=== PATIENT | male | born 1950 ===

== ENCOUNTER 2021-02-01 10:28 | Inpatient (IN) ==
--- NOTE | 2021-01-16 10:18 | PAT Medication Instructions ---
Medication Instructions Date of Service January 16, 2021 Home Medications ibuprofen 400 mg PO Q6H PRN multivitamin 1 tab PO QAM nicotine 1 patch TRANSDERMAL DAILY PRN paroxetine HCl 20 mg PO QAM pravastatin 40 mg PO HS Continue as directed nicotine 1 patch TRANSDERMAL DAILY PRN (but avoid placement near surgical site prior to surgery) ASK your surgeon for instructions ibuprofen 400 mg PO Q6H PRN DO NOT take the morning of surgery multivitamin 1 tab PO QAM Take morning of surgery With a small sip of water, OTHERWISE NOTHING TO EAT OR DRINK AFTER MIDNIGHT: paroxetine HCl 20 mg PO QAM Take evening before surgery pravastatin 40 mg PO HS Other Notes If you have any questions please call us at [phone] or [phone] or [phone] or [phone]
--- NOTE | 2021-01-18 11:00 | Anesthesiology Consultation ---
Date of Service January 18, 2021 Assessment & Plan (1) Encounter for pre-operative examination: - COVID screening: Per assessment on 01/18: Travel screen negative, no known COVID-19 positive contacts or current COVID-19 related symptoms. Patient fully vaccinated. Surgeon arranging preop COVID testing. Awaiting results. - Generalized anxiety: patient reports that he is anxious regarding upcoming surgery/anesthesia. Advised to discuss further AM DOS if preop anxiolytic could be given if desired at that time. Chart Review Chart Review: Acceptable Risk for Surgery and Patient seen in Pre Admission Testing Teaching & Discussion Pre-Anesthesia Teaching/Discussion Notes: Instructed NPO after midnight before surgery,except medications with 15 cc of water. Medication instructions provided according to the PAT guidelines. History Surgery Operation Date: 02/01/21 07:45 Proposed Procedures p L2-S1 Decompression and Fusion Spinal Cord Monitoring - Chato Sandoval DO Height/Weight Height: 6 ft Weight: 94 kg Allergies Allergy/AdvReac Type Severity Reaction Status Date / Time No Known Allergies Allergy Verified 01/08/21 11:57 Medications Home Medications Medication Instructions Recorded Confirmed Last Taken ibuprofen 400 mg PO Q6H PRN 01/08/21 01/08/21 Unknown multivitamin 1 tab PO QAM 01/08/21 01/08/21 Unknown nicotine 1 patch TRANSDERMAL DAILY PRN 01/08/21 01/08/21 Unknown paroxetine HCl 20 mg PO QAM 01/08/21 01/08/21 Unknown pravastatin 40 mg PO HS 01/08/21 01/08/21 Unknown Past Medical History Medical History Depression Generalized anxiety disorder Hyperlipidemia Lumbar radiculopathy Neuropathy BLE Osteoarthritis Exercise / Class Metabolic Activity II 4-5 Yardwork/Stairs/Walk up hill (one flight of stairs (no chest pain, no sob)) Past Family History Family History Other No family history of adverse response to anesthesia Past Surgical History Surgical History History of colonoscopy History of tonsillectomy History of tooth extraction Hx of vasectomy Past Anesthesia History No Hx of Anesthesia Complications and No Family Hx of Anesthesia Complications History of PONV No Hx of PONV and No Hx of Motion Sickness Social History Smoking Status: Current every day smoker tobacco type: cigarettes Smoking cigarettes per day: 10 cigs/day (tobacco use x 25 years) Do You Dip or Chew Tobacco: No Hx Alcohol Use: No Hx Substance Use: No Review of Systems Patient denies chest pain, shortness of breath, dyspnea on exertion, fever, chills, cough, wheezing, palpitations. Physical Exam Vital Signs VITALS BP 154/89 (patient sates he has white coat htn, 120s/80s- PCP aware/monitoring closely) P 66 TEMP 98.1 SP02 98%RA RESP 18 PHYSICAL Full cervical extension range of motion. Full TMJ range of motion. TMD 4 finger breaths Mallampati Score 3 Dentition: missing molars Lungs: clear throughout to auscultation Cardiac: regular rate and rhythm, no murmurs noted Spine: normal Carotid arteries: negative bruit Extremities: no edema Short aguila. Testing Laboratory Results 01/18/21 11:18 01/18/21 11:18 PT 10.0 Seconds (9.0-12.0) 01/18/21 11:18 INR 1.0 (0.9-1.1) 01/18/21 11:18 APTT 25.1 Seconds (21.0-31.0) 01/18/21 11:18 Urine Color Yellow 01/18/21 Unknown Urine Appearance Clear (Clear) 01/18/21 Unknown Urine pH 5.5 (4.5-7.5) 01/18/21 Unknown Ur Specific [place] 1.016 (1.000-1.030) 01/18/21 Unknown Urine Protein 3+ (Negative) H 01/18/21 Unknown Urine Glucose (UA) Negative (Negative) 01/18/21 Unknown Urine Ketones Trace (Negative) H 01/18/21 Unknown Urine Nitrite Negative (Negative) 01/18/21 Unknown Ur Leukocyte Esterase Trace (Negative) H 01/18/21 Unknown Urine WBC (Auto) 1-5 /hpf (0-5) 01/18/21 Unknown Urine RBC (Auto) 5-10 /hpf (0-4) H 01/18/21 Unknown U Hyaline Cast (Auto) 1-5 /lpf (0-5) 01/18/21 Unknown U Epithel Cells (Auto) 5-10 /lpf (0-5) H 01/18/21 Unknown Urine Bacteria (Auto) Negative (Negative) 01/18/21 Unknown Blood Type A Positive 01/18/21 11:18 Antibody Screen NEGATIVE 01/18/21 11:18 Electrocardiogram Date: 01/18/21 Findings: + NSR @ (69) Chest X-Ray Date: 01/18/21 FINDINGS: Cardiomediastinal and hilar silhouettes are within normal limits. No pneumothorax, pleural effusion, airspace consolidation or overt pulmonary edema. Mild linear subsegmental scarring/atelectasis of the lingula. Hyperinflation. Mild mid thoracic dextroscoliosis. Degenerative changes of the shoulders and spine. IMPRESSION: No acute process.
--- NOTE | 2021-01-18 11:53 | XRay Report ---
XR chest Pre-admission PA/Lat HISTORY: 70 years-old Male pat chronic back pain COMPARISON: None TECHNIQUE: PA and lateral views of the chest FINDINGS: Cardiomediastinal and hilar silhouettes are within normal limits. No pneumothorax, pleural effusion, airspace consolidation or overt pulmonary edema. Mild linear subsegmental scarring/atelectasis of the lingula. Hyperinflation. Mild mid thoracic dextroscoliosis. Degenerative changes of the shoulders an d spine. IMPRESSION: No acute process. ACT 112: Negative or not required by law. The above report was generated using voice recognition software. It may contain grammatical, syntax o r spelling errors. Electronically signed by: Gabriel Gutierrez M.D. 01/18/2021 11:51 AM
[2021-01-18 12:32] LABS: Basophils # (auto) 0.02 K/uL (0-0.2); Basophils % (auto) 0.3 %; Eosinophils # (auto) 0.15 K/uL (0-0.5); Eosinophils % (auto) 2.1 %; Hemoglobin 13.7 g/dL (14.0-18.0); Immature Granulocytes # (auto) 0.01 K/uL (0.00-0.02); Immature Granulocytes % (auto) 0.1 %; Lymphocytes # (auto) 1.54 K/uL (1.2-3.4); Lymphocytes % (auto) 21.1 %; Mean Corpuscular Hgb Conc 35.1 g/dL (32-36); Mean Corpuscular Volume 96.8 fL (80-100); Mean Platelet Volume 9.5 fL (7.4-10.4); Monocytes # (auto) 0.83 K/uL (0.11-0.59); Monocytes % (auto) 11.4 %; Neutrophils # (auto) 4.76 K/uL (1.4-6.5); Platelet Count 263 K/uL (130-400); RDW Coefficient of Variation 12.7 % (11.5-14.5); RDW Standard Deviation 45.2 fL (36.4-46.3); Red Blood Count 4.03 M/uL (4.7-6.1); White Blood Count 7.31 K/uL (4.8-10.8)
[2021-01-18 12:34] LABS: Appearance Urine Clear (Clear); Bacteria Urine Automated Negative (Negative); Bilirubin Urine Negative (Negative); Blood Urine 1+ (Negative); Color Urine Yellow; Glucose Urine UA Negative (Negative); Ketones Urine Trace (Negative); Leukocyte Esterase Urine Trace (Negative); Nitrite Urine Negative (Negative); Protein Urine 3+ (Negative); Specific Gravity Urine 1.016 (1.000-1.030); Urobilinogen Urine Negative (Negative); pH Urine 5.5 (4.5-7.5)
[2021-01-18 12:48] LABS: Partial Thromboplastin Time 25.1 Seconds (21.0-31.0)
[2021-01-18 13:41] LABS: BUN Creatinine Ratio 11.8 (10-20); Calcium 8.8 mg/dl (8.5-10.1); Creatinine Clr Calc Pharmacy 67.1 ml/min; Est GFR (African American) 69.2; Est GFR (Non-African American) 59.7; Potassium 4.9 mmol/L (3.5-5.1)
--- NOTE | 2021-01-18 15:35 | Electrocardiogram Report ---
Test Reason : Blood Pressure : / mmHG Vent. Rate : 069 BPM Atrial Rate : 069 BPM P-R Int : 140 ms QRS Dur : 076 ms QT Int : 392 ms P-R-T Axes : 065 070 073 degrees QTc Int : 420 ms Normal sinus rhythm Normal ECG No previous ECGs available Confirmed by Kevin Owusu ([id number]) on 01/18/2021 3:35:12 PM Referred By: Chato Sandoval Confirmed By:Kevin Owusu
[~2021-02-01 10:28] MED LIST: ACETAMINOPHEN 500 MG TAB PO SCH; CeleBREX 200 MG CAP PO SCH; GABAPENTIN 300 MG CAP PO SCH; LR 15ML/HR IV SCH; ceFAZolin 2000MG 2,000 MG/15 ML SYR IV SCH
[2021-02-01] MEDS ORDERED: ePHEDrine sulfate 50 MG/ML AMP IV PRN (11:45)
[2021-02-01] MEDS ORDERED: ATROPINE SULFATE 0.1 MG/ML 10ML SYR IV PRN (11:45)
[2021-02-01] MEDS ORDERED: ONDANSETRON INJ 2 MG/ML 2 ML VIAL IV PRN ×2 (11:45→17:02)
[2021-02-01] MEDS ORDERED: fentaNYL citrate 100 MCG/2 ML VIAL IV PRN (11:45)
[2021-02-01] MEDS ORDERED: HYDROmorphone INJ 2 MG/ML SYR/VIAL IV PRN (11:45)
[2021-02-01] MEDS ORDERED: NEOSTIGMINE METHYLSULFATE 1 MG/ML 10ML VIAL ONE (12:05)
[2021-02-01] MEDS ORDERED: PROPOFOL IV EMULSION 10 MG/ML 20 ML VIAL IV ONE (12:05)
[2021-02-01] MEDS ORDERED: ROCURONIUM BROMIDE 10 MG/ML 5 ML VIAL IV ONE (12:05)
[2021-02-01] MEDS ORDERED: ONDANSETRON INJ 2 MG/ML 2 ML VIAL ONE (12:05)
[2021-02-01] MEDS ORDERED: MIDAZOLAM HCL 1 MG/ML 2ML VIAL ONE (12:05)
[2021-02-01] MEDS ORDERED: fentaNYL citrate 100 MCG/2 ML VIAL ONE (12:05)
[2021-02-01] MEDS ORDERED: KETAMINE 50 MG/5 ML SYRINGE ONE (12:07)
--- NOTE | 2021-02-01 12:23 | History & Physical Bridge Note ---
Date of Service February 01, 2021 History & Physical Bridge Note I have examined the patient, reviewed the History & Physical and in the interval since the performance of the History & Physical I have noted the following changes of clinical significance: no changes noted
--- NOTE | 2021-02-01 12:24 | History & Physical Report ---
Date of Service February 01, 2021 Assessment & Plan (1) Neurogenic claudication due to lumbar spinal stenosis: Admission and Anticipated Discharge Date Admission Date: L2-S1 decompression fusion History of Present Illness Chief Complaint: Back and bilateral leg pain Primary Care Provider: Neno Del Cid PA-C This is a 70-year-old male who presents with chronic persistent back and bilateral leg pain. After failing course of nonoperative care is here for surgical invention. Allergies Allergy/AdvReac Type Severity Reaction Status Date / Time No Known Allergies Allergy Verified 02/01/21 10:57 Home Medications Medication Instructions Recorded Confirmed Type ibuprofen 400 mg PO Q6H PRN 01/08/21 02/01/21 History multivitamin 1 tab PO QAM 01/08/21 02/01/21 History nicotine 1 patch TRANSDERMAL DAILY PRN 01/08/21 02/01/21 History paroxetine HCl 20 mg PO QAM 01/08/21 02/01/21 History pravastatin 40 mg PO QAM 01/08/21 02/01/21 History Past Med/Surg History Medical History Depression Generalized anxiety disorder Hyperlipidemia Lumbar radiculopathy Neuropathy BLE Osteoarthritis Surgical History History of colonoscopy History of tonsillectomy History of tooth extraction Hx of vasectomy Family History Other No family history of adverse response to anesthesia Social History Smoking Status: Current every day smoker Cigarettes Per Day: 10 cigs/day (tobacco use x 25 years); Second Hand Exposure: Yes (IN THE PAST); Do You Dip or Chew Tobacco: No; Tobacco Cessation Education Requested by Patient: No Hx Alcohol Use: No Hx Substance Use: No Preferred Language: Cook Islander Electric Motor Mechanic Required: No Beliefs That Will Affect Care: None Current Living Situation: Alone Feels Safe at Home: Yes Safety Concerns: Feels Safe At This Time Assistive Devices: Cane, Glasses and Walker Physical Exam Physical Exam: Patient is alert and oriented Heart regular in rhythm Lungs clear to auscultation Results & Data ([place]) Vital Signs (Past 12 Hours) Vital Signs Temp Pulse Resp BP BP Pulse Ox 02/01/21 11:18 37 C 87 20 182/107 H 199/108 H 98
[2021-02-01] MEDS ORDERED: BUPIVACAINE/EPINEPHRINE 0.5% MPF 1:200,000 30 ML VIAL ONE (12:46)
[2021-02-01] MEDS ORDERED: ALBUTEROL HFA INHALER 8.5 GM ONE (13:34)
[2021-02-01] MEDS ORDERED: ePHEDrine sulfate 50 MG/ML SYR ONE (13:35)
[2021-02-01] MEDS ORDERED: PHENYLEPHRINE HCL 10 MG/ML VIAL ONE (13:35)
[2021-02-01] MEDS ORDERED: FLOSEAL HEMOSTATIC MATRIX 10ML TOP ONE (13:58)
[2021-02-01] MEDS ORDERED: VASOPRESSIN 20 UNIT/ML VIAL ONE (14:16)
--- NOTE | 2021-02-01 15:18 | Operative Report ---
Post Operative Report Pre & Post Diagnosis Operation Date: 02/01/21 12:05 Pre-Op Diagnosis: Lumbar spinal stenosis with neurogenic claudication Post-Op Diagnosis: Same I identified the patient and participated in the time-out.: Yes Procedure Operation Date: 02/01/21 12:05 Actual Procedures #1 lumbar decompression with bilateral medial facetectomies and foraminotomies L3-4, L4-5 and L5-S1. #2 posterior spinal fusion L4-5 L5-S1. #3 placement posterior instrumentation L4-5 L5-S1. #4 interbody fusion L4-5 L5-S1. #5 placement peek cage 13 x 26 mm at L4-5 and L5-S1. #6 placement locally harvested morselized autograft in the posterior lateral gutters. #7 placement infuse collagen sponge, master graft in the posterior lateral gutters and I factor in the interbody space. Surgeon Chato Sandoval, Java Mobile Developer Neno Jasso Estimated Blood Loss 250 Findings Consistent with Post-Op Diagnosis Specimens None Indications This is a 70-year-old male who presents above-mentioned diagnosis after failing since course of nonoperative care is here for surgical invention. Description of Procedure Patient was met with identified informed consent obtained. Patient was then taken to the operative suite underwent an patient placed in prone position the [place] table top Rufino frame. All bony prominences well-padded eyes inspected to ensure no external pressure placed upon the. This point the lumbar spine was prepped and draped in a sterile fashion. Sharp dissection with the assistance of Bovie cautery performed down to and exposing the lamina and transverse processes of L for L5 and sacral ala bilaterally. From caudal cephalad fashion complete laminectomy of L5 L4 and partial laminectomy L3 was performed including bilateral medial facetectomies and foraminotomies addressing severe spinal stenosis. Pedicle screws then placed in L for L5 and S1 levels bilaterally with assistance of fluoroscopy and the proper sized solo placed. By way of a transforaminal approach and left complete discectomy of L5-S1 was performed endplates curetted to subcortical bleeding bone and a 13 x 26 mm peek cage filled with I factor tapped in position. Then proceeded to L for L5 again by way of a transforaminal approach on the left complete discectomy was performed endplates curetted to subcortically bone and a 13 x 26 mm peek cage filled with I factor tapped in position. Rods were then locked in final position bilaterally. The transverse processes of L for L5 and sacral ala burred to subcortical bleeding bone. Infuse collagen sponge mass graft local autograft was placed in the posterior lateral gutters. 15 round LAURA drain inserted. The incision was then closed with 1 Vicryl in the fascia 2-0 Vicryl subcutaneously and 4 Monocryl for final skin closure. Steri-Strip sterile dressings placed. Patient will continue to PACU stable condition. Please note spinal cord monitoring was utilized at the procedure no changes noted. Lastly Neno Jasso was present at the entire surgery and all the patient positioning complex portions of the surgery and final skin closure. I attest to the content of the Intraoperative Record and any orders documented therein. Any exceptions are noted below.
--- NOTE | 2021-02-01 15:23 | Fluoroscopy Report ---
INTRAOPERATIVE RADIOGRAPHS CLINICAL HISTORY: Lumbar spinal fusion. Fluoroscopy time: 27 seconds. FINDINGS: 2 spot fluoroscopic views of the lumbar spine are presented. There has been discectomy at L 4-L5 and L5-S1 with laminectomy and posterior fusion from L4-S1. Interpedicular screws are in place. The orthopedic hardware appears intact. IMPRESSION: Intraoperative images from lumbar spinal fusion surgery as above. Electronically signed by: Ambrosio Mack M.D. 02/01/2021 3:22 PM
[2021-02-01] MEDS ORDERED: SUGAMMADEX SODIUM 200 MG/2 ML VIAL IV ONE (15:45)
--- NOTE | 2021-02-01 15:53 | Fluoroscopy Report ---
FL spine 1V any level CLINICAL HISTORY: INSTRUMENT COUNT. NEEDLE COMPARISON STUDY: Lumbar spine 02/01/2021. FLUOROSCOPY TIME: 26 seconds. FINDINGS: 2 fluoroscopic spot images of the lower lumbar spine demonstrate posterior decompression fu curtis from L4 through S1 with pedicle screws and rods. The hardware appears intact. There appears to b e a surgical drain identified. No needlelike radiopaque foreign bodies identified. IMPRESSION: No needle like radiopaque foreign bodies identified within the lower lumbar spine. ACT 112: Negative or not required by law. Electronically signed by: Malik Ace M.D. 02/01/2021 3:51 PM
--- NOTE | 2021-02-01 16:31 | Anesthesiology Progress Note ---
Date of Service February 01, 2021 Anesthesia Post Procedure Vital Signs Vital Signs: Temp Pulse Pulse Resp BP BP Pulse Ox 02/01/21 16:25 36.4 C L 89 15 102/60 96 02/01/21 16:15 80 17 120/62 99 02/01/21 16:05 85 19 130/64 99 02/01/21 15:55 36.2 C L 85 15 167/65 H 168/65 H 98 02/01/21 11:18 37 C 87 20 182/107 H 199/108 H 98 Transfer of Care Handoff Completed per policy Notes Mental Status: alert / awake / arousable Patient Amnestic to Procedure: Yes Nausea / Vomiting: adequately controlled Pain: adequately controlled Airway Patency, RR, SpO2: stable & adequate BP & HR: stable & adequate Hydration State: stable & adequate Anesthetic Complications: no major complications apparent and Pt Satisfied with anesthetic care
[2021-02-01] MEDS ORDERED: ACETAMINOPHEN 500 MG TAB PO PRN (17:02)
[2021-02-01] MEDS ORDERED: LORazepam 0.5 MG TAB PO PRN (17:02)
[2021-02-01] MEDS ORDERED: SOD PHOSPHATE/SOD BIPHOSPHATE ENEMA 132 ML BTL PR PRN (17:02)
[2021-02-01] MEDS ORDERED: diphenhydrAMINE Capsule 25 MG CAP PO PRN (17:02)
[2021-02-01] MEDS ORDERED: MAGNESIUM HYDROXIDE SUSP 30 ML UDC PO PRN (17:02)
[2021-02-01] MEDS ORDERED: ACETAMINOPHEN 1,000 MG/100 ML VIAL IV PRN (17:02)
[2021-02-01] MEDS ORDERED: NALOXONE HCL 0.4 MG/1 ML VIAL/CARP IV PRN (17:02)
[2021-02-01] MEDS ORDERED: FAMOTIDINE 20 MG TAB PO PRN (17:02)
[2021-02-01] MEDS ORDERED: HYDROmorphone INJ 1 MG/ML SYRINGE IV PRN (17:02)
[2021-02-01] MEDS ORDERED: hydrOXYzine HCl 25 MG TAB PO PRN (17:02)
[2021-02-01] MEDS ORDERED: METOCLOPRAMIDE HCL INJ 5 MG/ML 2 ML VIAL IV PRN (17:02)
[2021-02-01] MEDS ORDERED: oxyCODONE HCL IR 5 MG TAB (IMMEDIATE RELEASE) PO PRN (17:02)
[2021-02-01] MEDS ORDERED: bisacodyL 10 MG SUPP PR PRN (17:02)
[2021-02-01] MEDS ORDERED: PROMETHAZINE HCL 12.5 MG in SODIUM CHLORIDE 0.9% 50 ML IV PRN (17:02)
[2021-02-01] MEDS ORDERED: ALUMINUM/MAGNESIUM SUSP 30 ML UDC PO PRN (17:02)
[2021-02-01] MEDS ORDERED: DO NOT ADMINISTER FLU VACCINE PRN (17:02)
[2021-02-01] MEDS ORDERED: HYDROmorphone INJ 0.5 MG/0.5 ML SYR IV PRN (17:02)
[2021-02-01] MEDS ORDERED: ONDANSETRON 4 MG OD TAB PO PRN (17:02)
[2021-02-01] MEDS ORDERED: LORazepam 0.5 MG/1 ML VIAL IV PRN (17:02)
[2021-02-01] MEDS ORDERED: DO NOT ADMINISTER PNEUMOCOCCAL VACCINE PRN (17:02)
[2021-02-01] MEDS: LACTATED RINGER'S 1,000 ML IV SCH (17:16)
[2021-02-01] MEDS: NICOTINE 21 MG/24 HR TDSY TD SCH (17:37)
--- NOTE | 2021-02-01 17:58 | Consultation ---
Date of Consultation February 01, 2021 Assessment & Plan (1) Status post lumbar surgery: Post op day# 0 S/P L3-S1 decompression & fusion by Dr Sandoval EBL#250ml -pain management per ortho -wound management per ortho -PT/OT as appropriate -DVT prophylaxis per ortho -incentive spirometry -monitor H&H for acute blood loss anemia; pre-op Hgb:13.7 (2) Hyperlipidemia: -Continue pravastatin (3) Generalized anxiety disorder: (4) Depression: -Continue paroxetine (5) Tobacco use: -Nicotine patch -Smoking cessation encouraged DVT Prophylaxis -SCDs per ortho Disposition per primary service Follows with Neno Del Cid PA-C for routine care Pt was seen and care coordinated with Dr Kirkpatrick. See addendum Thank you for this consultation. We will follow the patient with you during their hospital stay. You can reach a [facility] via tiger text or pager @ [phone]. Supervising Physician Co-Signing Physician Notes Attending Addendum: delayed entry care coordinated with MAMIE Bruno. please refer to her notes for full details, I agree with her notes patient seen and examined, records reviewed by myself as well on exam, patient seen resting in bed, comfortable no other symptoms VS noted and reviewed oriented x 3 , not in distress, speaks in sentences with no effort nor accessory muscle use normal rate, regular rhythm, no murmurs clear breath sounds bilaterally non distended, soft, nontender no bipedal edema, erythema, warmth no neuro deficits labs noted and reviewed ASSESSMENT AND PLAN> POST OP BACK SURGERY stable overall HISTORY OF ANXIETY continue usual medication other diagnoses and plan of care as per MAMIE Bruno notes Roque Kirkpatrick MD History of Present Illness Requesting Physician: Dr Sandoval Reason for Consultation: post op medical management Attending Physician: Chato Sandoval, DO History of Present Illness Pt is 70 y/o M with PMH HLD, anxiety, depression, tobacco use seen in medical consultation s/p L3-S1 decompression and fusion today by Dr Sandoval. Post op pt reports is doing well and reports pain controlled. Denies LUTZ, dizziness, CP, SOB, nausea or vomiting. Sitting up in bed eating dinner. Reports BM this AM. Has chronic cough, is a smoker. Denies fever/chills, neck pain, palpitations, sore throat, choking, abdominal pain, extremity weakness, extremity edema, rashes, urinary symptoms. Allergies Allergy/AdvReac Type Severity Reaction Status Date / Time No Known Allergies Allergy Verified 02/01/21 10:57 Home Medications Medication Instructions Recorded Confirmed Type multivitamin 1 tab PO QAM 01/08/21 02/01/21 History nicotine 1 patch TRANSDERMAL DAILY PRN 01/08/21 02/01/21 History paroxetine HCl 20 mg PO QAM 01/08/21 02/01/21 History pravastatin 40 mg PO QAM 01/08/21 02/01/21 History oxycodone 5 mg PO Q6H PRN #30 tab 02/04/21 Rx tramadol 50 mg PO Q6H PRN #30 tab 02/04/21 Rx Patient History Medical History Depression Generalized anxiety disorder Hyperlipidemia Lumbar radiculopathy Neuropathy BLE Osteoarthritis Tobacco use Surgical History (Updated 02/01/21 @ 17:54 by Paty Santo PA-C) History of colonoscopy History of tonsillectomy History of tooth extraction Hx of vasectomy Family History Other No family history of adverse response to anesthesia Social History Smoking Status: Current every day smoker Cigarettes Per Day: 10 cigs/day (tobacco use x 25 years); Second Hand Exposure: Yes (IN THE PAST); Do You Dip or Chew Tobacco: No; Tobacco Cessation Education Requested by Patient: No Hx Alcohol Use: No Hx Substance Use: No Preferred Language: Hebrew Communication Ability: Effective Quality Systems Technician Required: No Beliefs That Will Affect Care: None Current Living Situation: Alone Feels Safe at Home: Yes Safety Concerns: Feels Safe At This Time Assistive Devices: Glasses and Walker Review of Systems Review of Systems: All systems reviewed & are unremarkable except as noted in HPI & below Physical Exam Physical Exam: General: no distress, WDWN Head: normocephalic, atraumatic Eyes: conjunctiva non-injected, anicteric ENT: normal inspection external ears, nose, mucous membranes moist Neck: supple, trachea midline Lungs: clear, no respiratory distress, no wheezing/rhonchi/rales CV: RRR, no murmur, no pretibial edema Abd: normal BS, soft, non-tender Back: surgical dressing in place, LAURA drain with scant amount of serosanguineous drainage Ext: no cyanosis, no calf tenderness; pedal pushes and pulls intact bilaterally, distal pulses intact bilaterally, sensation to light touch intact Neuro: A&O x 3, no focal deficits noted, normal affect Skin: warm, dry Results & Data ([facility]) Vital Signs (Past 12 Hours) Vital Signs Temp Pulse Pulse Resp BP BP Pulse Ox 02/01/21 17:14 36.5 C 67 16 116/67 96 02/01/21 16:45 36.4 C L 76 18 128/76 96 02/01/21 16:30 83 17 120/64 96 02/01/21 16:25 36.4 C L 89 15 102/60 96 02/01/21 16:15 80 17 120/62 99 02/01/21 16:05 85 19 130/64 99 02/01/21 15:55 36.2 C L 85 15 167/65 H 168/65 H 98 02/01/21 11:18 37 C 87 20 182/107 H 199/108 H 98
[2021-02-01] MEDS: traMADol HCL 50 MG TABLET PO PRN (20:16)
[2021-02-01] MEDS: DOCUSATE SODIUM/SENNA 50/8.6MG TAB PO SCH (20:17)
[2021-02-01] MEDS: ceFAZolin 2000MG 2,000 MG/15 ML SYR IV SCH (21:36)
[2021-02-02] MEDS: LACTATED RINGER'S 1,000 ML IV SCH (03:11)
[2021-02-02] MEDS: POLYETHYLENE (MIRALAX) 17 GM PACK PO SCH ×3 (05:47→17:33)
[2021-02-02] MEDS: ceFAZolin 2000MG 2,000 MG/15 ML SYR IV SCH (05:48)
[2021-02-02 06:15] LABS: Basophils # (auto) 0.01 K/uL (0-0.2); Basophils % (auto) 0.1 %; Eosinophils # (auto) 0.03 K/uL (0-0.5); Eosinophils % (auto) 0.3 %; Hematocrit (blood only) 29.4 % (42-52); Hemoglobin 10.3 g/dL (14.0-18.0); Immature Granulocytes # (auto) 0.03 K/uL (0.00-0.02); Immature Granulocytes % (auto) 0.3 %; Lymphocytes # (auto) 1.57 K/uL (1.2-3.4); Lymphocytes % (auto) 13.8 %; Mean Corpuscular Hemoglobin 32.9 pg (25-34); Mean Corpuscular Volume 93.9 fL (80-100); Mean Platelet Volume 9.1 fL (7.4-10.4); Monocytes # (auto) 0.89 K/uL (0.11-0.59); Monocytes % (auto) 7.8 %; Neutrophils # (auto) 8.85 K/uL (1.4-6.5); Neutrophils % (auto) 77.7 %; Platelet Count 191 K/uL (130-400); RDW Coefficient of Variation 12.9 % (11.5-14.5); RDW Standard Deviation 44.5 fL (36.4-46.3); Red Blood Count 3.13 M/uL (4.7-6.1); White Blood Count 11.38 K/uL (4.8-10.8)
[2021-02-02 06:45] LABS: BUN Creatinine Ratio 10.8 (10-20); Calcium 7.9 mg/dl (8.5-10.1); Creatinine Clr Calc Pharmacy 62.4 ml/min; Est GFR (African American) 69.9 ml/min; Est GFR (Non-African American) 60.3 ml/min
[2021-02-02] MEDS: traMADol HCL 50 MG TABLET PO PRN ×3 (08:27→20:39)
--- NOTE | 2021-02-02 08:40 | Orthopedic Progress Note ---
Date of Service February 02, 2021 Assessment & Plan (1) Neurogenic claudication due to lumbar spinal stenosis: Admission and Anticipated Discharge Date Admission Date: February 01, 2021 We will initiate physical therapy today monitor his LAURA output anticipate discharge home in the next few days. Subjective Back pain is controlled leg symptoms improved Physical Exam Physical Exam: Patient appears comfortable. Is distracted testing. Results & Data ([facility]) Vital Signs (Past 12 Hours) Vital Signs Temp Pulse Resp BP BP Pulse Ox 02/02/21 07:29 36.7 C 75 16 120/68 90 02/02/21 03:36 36.8 C 83 16 134/78 92 02/01/21 22:50 36.8 C 89 18 162/76 H 93
[2021-02-02] MEDS: PARoxetine HCL 20 MG TAB PO SCH (09:05)
[2021-02-02] MEDS: PRAVASTATIN SOD 40 MG TAB PO SCH (09:05)
[2021-02-02] MEDS: MULTIVITAMIN TAB PO SCH (09:05)
[2021-02-02] MEDS: NICOTINE 21 MG/24 HR TDSY TD SCH (09:05)
--- NOTE | 2021-02-02 09:41 | Anesthesiology Progress Note ---
Date of Service February 02, 2021 Anesthesia Post Procedure Vital Signs Vital Signs: Temp Pulse Pulse Pulse Resp BP BP 02/02/21 07:29 36.7 C 75 16 120/68 02/02/21 03:36 36.8 C 83 16 134/78 02/01/21 22:50 36.8 C 89 18 162/76 H 02/01/21 19:49 36.7 C 94 H 18 148/75 H 02/01/21 18:35 36.7 C 80 16 120/63 02/01/21 17:45 72 18 112/62 02/01/21 17:14 36.5 C 67 16 116/67 02/01/21 16:45 36.4 C L 76 18 128/76 02/01/21 16:30 83 17 120/64 02/01/21 16:25 36.4 C L 89 15 102/60 02/01/21 16:15 80 17 120/62 02/01/21 16:05 85 19 130/64 02/01/21 15:55 36.2 C L 85 15 167/65 H 168/65 H 02/01/21 11:18 37 C 87 20 182/107 H 199/108 H Pulse Ox 02/02/21 07:29 90 02/02/21 03:36 92 02/01/21 22:50 93 02/01/21 19:49 92 02/01/21 18:35 96 02/01/21 17:45 96 02/01/21 17:14 96 02/01/21 16:45 96 02/01/21 16:30 96 02/01/21 16:25 96 02/01/21 16:15 99 02/01/21 16:05 99 02/01/21 15:55 98 02/01/21 11:18 98 Pain Intensity Back: Pain Intensity: 2 Transfer of Care Handoff Completed per policy Notes Mental Status: alert / awake / arousable and participated in evaluation Nausea / Vomiting: adequately controlled Pain: adequately controlled Airway Patency, RR, SpO2: stable & adequate BP & HR: stable & adequate Hydration State: stable & adequate Anesthetic Complications: no major complications apparent and Pt Satisfied with anesthetic care Notes: Pt OOB eating breakfast.
--- NOTE | 2021-02-02 18:24 | Hospitalist Progress Note ---
Date of Service February 02, 2021 Assessment & Plan (1) Status post lumbar surgery: Post op day# 1 S/P L3-S1 decompression & fusion by Dr Sandoval - stable overall Hg 10, asymptomatic monitor Hg -DVT prophylaxis per ortho -incentive spirometry (2) Hyperlipidemia: -Continue pravastatin (3) Generalized anxiety disorder: (4) Depression: -Continue paroxetine (5) Tobacco use: -Nicotine patch -Smoking cessation encouraged DVT Prophylaxis -SCDs per ortho Thank you for this consultation. We will follow the patient with you during their hospital stay. You can reach a member of the [facility] Hospitalist Team 06/04 via tiger text or pager @ [phone]. Admission and Anticipated Discharge Date Admission Date: February 01, 2021 Subjective ff up for post op back surgery seen resting in chair, comfortable states he feels fine overall back pain well controlled no chest pain, dyspnea, palpitations, dizziness no other symptoms Review of Systems Review of Systems: All systems reviewed & are unremarkable except as noted in Subjective Physical Exam Physical Exam: General- oriented x 3, not in distress, speaks in sentences with no effort or accessory muscle use Eyes- anicteric Neck- no JVD Lungs- clear BS BL no rales/wheezing Heart- normal rate, regular rhythm; no murmurs Abdomen- normal bowel sounds, nondistended, soft, nontender Extremities- no pretibial edema, no calf tenderness Neuro- alert, oriented x 3; no gross focal neurologic deficits Skin- warm & dry Results & Data Results & Data ([facility]) Vital Signs (Past 12 Hours) Vital Signs Temp Pulse Resp BP Pulse Ox 02/02/21 15:09 36.7 C 75 18 156/79 H 98 02/02/21 11:18 36.8 C 76 16 119/74 94 02/02/21 07:29 36.7 C 75 16 120/68 90 all noted and reviewed including below Laboratory Results Laboratory Results - last 24 hr 02/02/21 02/02/21 05:54 05:54 WBC 11.38 H RBC 3.13 L Hgb 10.3 L Hct 29.4 L MCV 93.9 MCH 32.9 MCHC 35.0 RDW Std Deviation 44.5 RDW Coeff of Renetta 12.9 Plt Count 191 MPV 9.1 Immature Gran % (Auto) 0.3 Neut % (Auto) 77.7 Lymph % (Auto) 13.8 [place] % (Auto) 7.8 Eos % (Auto) 0.3 Baso % (Auto) 0.1 Neut # (Auto) 8.85 H Lymph # (Auto) 1.57 [place] # (Auto) 0.89 H Eos # (Auto) 0.03 Baso # (Auto) 0.01 Immature Gran # (Auto) 0.03 H Sodium 131 L Potassium 4.0 Chloride 99 Carbon Dioxide 28 Anion Gap 3.0 BUN 13 Creatinine 1.21 Est Cr Clr Drug Dosing 62.4 Est GFR ( Amer) 69.9 Est GFR (Non-Af Amer) 60.3 BUN/Creatinine Ratio 10.8 Glucose 105 H Calcium 7.9 L
[2021-02-02] MEDS: DOCUSATE SODIUM/SENNA 50/8.6MG TAB PO SCH (20:00)
[2021-02-03] MEDS: POLYETHYLENE (MIRALAX) 17 GM PACK PO SCH ×5 (01:00→23:44)
[2021-02-03] MEDS: traMADol HCL 50 MG TABLET PO PRN ×3 (01:36→21:23)
[2021-02-03] MEDS: PRAVASTATIN SOD 40 MG TAB PO SCH (08:43)
[2021-02-03] MEDS: PARoxetine HCL 20 MG TAB PO SCH (08:43)
[2021-02-03] MEDS: MULTIVITAMIN TAB PO SCH (08:43)
[2021-02-03] MEDS: NICOTINE 21 MG/24 HR TDSY TD SCH (08:44)
[2021-02-03] MEDS: dexAMETHasone 8 MG in SYRINGE 0 ML IV SCH (08:44)
[2021-02-03 10:00] LABS: Basophils # (auto) 0.02 K/uL (0-0.2); Basophils % (auto) 0.2 %; Eosinophils # (auto) 0.06 K/uL (0-0.5); Eosinophils % (auto) 0.7 %; Hematocrit (blood only) 32.7 % (42-52); Hemoglobin 11.3 g/dL (14.0-18.0); Immature Granulocytes # (auto) 0.01 K/uL (0.00-0.02); Immature Granulocytes % (auto) 0.1 %; Lymphocytes # (auto) 0.74 K/uL (1.2-3.4); Lymphocytes % (auto) 8.6 %; Mean Corpuscular Hemoglobin 33.5 pg (25-34); Mean Corpuscular Hgb Conc 34.6 g/dL (32-36); Mean Platelet Volume 8.6 fL (7.4-10.4); Monocytes # (auto) 0.56 K/uL (0.11-0.59); Monocytes % (auto) 6.5 %; Neutrophils # (auto) 7.23 K/uL (1.4-6.5); Neutrophils % (auto) 83.9 %; Platelet Count 185 K/uL (130-400); RDW Standard Deviation 46.2 fL (36.4-46.3); Red Blood Count 3.37 M/uL (4.7-6.1); White Blood Count 8.62 K/uL (4.8-10.8)
[2021-02-03 10:32] LABS: Calcium 8.6 mg/dl (8.5-10.1); Creatinine Clr Calc Pharmacy 81.1 ml/min; Est GFR (African American) 96.1 ml/min; Est GFR (Non-African American) 82.9 ml/min
--- NOTE | 2021-02-03 10:38 | Orthopedic Progress Note ---
Date of Service February 03, 2021 Assessment & Plan (1) Neurogenic claudication due to lumbar spinal stenosis: Admission and Anticipated Discharge Date Admission Date: February 01, 2021 This time we will continue physical therapy monitor his LAURA output anticipate discharge home tomorrow. Subjective Back pain controlled leg symptoms improved Physical Exam Physical Exam: Patient is sitting up at the bedside. Is good strength testing. Appears comfortable. Results & Data ([facility]) Vital Signs (Past 12 Hours) Vital Signs Temp Pulse Resp BP Pulse Ox 02/03/21 07:40 36.9 C 81 16 161/84 H 92
[2021-02-03] MEDS ORDERED: hydrALAZINE HCL 20 MG/ML VIAL IV PRN (17:50)
--- NOTE | 2021-02-03 17:50 | Hospitalist Progress Note ---
Date of Service February 03, 2021 Assessment & Plan (1) Status post lumbar surgery: Post op day# 1 S/P L3-S1 decompression & fusion by Dr Sandoval - stable overall Hg 11, asymptomatic -DVT prophylaxis per ortho -incentive spirometry Elevated BP - secondary to pain resolved (2) Hyperlipidemia: -Continue pravastatin (3) Generalized anxiety disorder: (4) Depression: -Continue paroxetine (5) Tobacco use: -Nicotine patch -Smoking cessation encouraged DVT Prophylaxis -SCDs per ortho Thank you for this consultation. We will follow the patient with you during their hospital stay. You can reach a member of the [facility] Hospitalist Team 06/04 via tiger text or pager @ [phone]. Admission and Anticipated Discharge Date Admission Date: February 01, 2021 Subjective ff up for post op back surgery seen resting in bed, comfortable states he feels fine overall no chest pain, dyspnea, dizziness ambulating with no problems no other symptoms Review of Systems Review of Systems: All systems reviewed & are unremarkable except as noted in Subjective Physical Exam Physical Exam: General- oriented x 3, not in distress, speaks in sentences with no effort or accessory muscle use Eyes- anicteric Neck- no JVD Lungs- clear BS BL no rales/wheezes Heart- normal rate, regular rhythm; no murmurs Abdomen- normal bowel sounds, nondistended, soft, nontender Extremities- no pretibial edema, no calf tenderness Neuro- alert, oriented x 3; no gross focal neurologic deficits Skin- warm & dry Results & Data Results & Data ([facility]) Vital Signs (Past 12 Hours) Vital Signs Temp Pulse Pulse Resp BP BP Pulse Ox 02/03/21 15:20 78 159/75 H 02/03/21 14:00 36.6 C 89 18 173/87 H 94 02/03/21 07:40 36.9 C 81 16 161/84 H 92 all noted and reviewed including below Laboratory Results Laboratory Results - last 24 hr 02/01/21 02/03/21 02/03/21 10:47 09:51 09:51 WBC 8.62 RBC 3.37 L Hgb 11.3 L Hct 32.7 L MCV 97.0 MCH 33.5 MCHC 34.6 RDW Std Deviation 46.2 RDW Coeff of Renetta 13.0 Plt Count 185 MPV 8.6 Immature Gran % (Auto) 0.1 Neut % (Auto) 83.9 Lymph % (Auto) 8.6 [place] % (Auto) 6.5 Eos % (Auto) 0.7 Baso % (Auto) 0.2 Neut # (Auto) 7.23 H Lymph # (Auto) 0.74 L [place] # (Auto) 0.56 Eos # (Auto) 0.06 Baso # (Auto) 0.02 Immature Gran # (Auto) 0.01 Sodium 135 L Potassium 4.0 Chloride 101 Carbon Dioxide 30 Anion Gap 4.0 BUN 13 Creatinine 0.93 Est Cr Clr Drug Dosing 81.1 Est GFR ( Amer) 96.1 Est GFR (Non-Af Amer) 82.9 BUN/Creatinine Ratio 14.0 Glucose 120 H Calcium 8.6 Crossmatch See Detail
[2021-02-03] MEDS: DOCUSATE SODIUM/SENNA 50/8.6MG TAB PO SCH (21:23)
[2021-02-04] MEDS: POLYETHYLENE (MIRALAX) 17 GM PACK PO SCH ×2 (05:53→12:22)
[2021-02-04] MEDS: MULTIVITAMIN TAB PO SCH (08:38)
[2021-02-04] MEDS: PRAVASTATIN SOD 40 MG TAB PO SCH (08:38)
[2021-02-04] MEDS: PARoxetine HCL 20 MG TAB PO SCH (08:39)
[2021-02-04] MEDS: NICOTINE 21 MG/24 HR TDSY TD SCH (08:39)
[2021-02-04] MEDS: dexAMETHasone 8 MG in SYRINGE 0 ML IV SCH (08:39)
[2021-02-04] MEDS: traMADol HCL 50 MG TABLET PO PRN (08:42)
--- NOTE | 2021-02-04 09:47 | Discharge Summary ---
Date of Service February 04, 2021 Admission HPI Per Admitting Provider This is a 70-year-old male who presents with chronic persistent back and bilateral leg pain. After failing course of nonoperative care is here for surgical invention. Principal Diagnosis Lumbar spinal stenosis with neurogenic claudication Discharge Data Allergies Allergy/AdvReac Type Severity Reaction Status Date / Time No Known Allergies Allergy Verified 02/01/21 10:57 Consultations 02/01/21 17:02 Consult Hospitalist Routine Procedures Performed Operation Date: 02/01/21 12:05 Actual Procedures p L4-S1 Decompression and Fusion, Interbody Fusion L4-5, L5-S1, Spinal Cord Monitoring(Not Applicable) - Chato Sandoval DO Ordered Studies 02/01/21 12:05 FL lumbar spine 2-3V Routine 02/01/21 15:41 FL spine 1V any level Routine Hospital Course (1) Neurogenic claudication due to lumbar spinal stenosis: Patient with lumbar decompression fusion trial as well as taken to orthopedic for postoperative. Postop day level 1 he was up and ambulating Rc postop day #2 on postop day #3 pain was well controlled excellent strength testing subsequent discharge home. Discharge orders instructions from the chart for further review. Total Time Total Time Spent Total Time Spent (In Minutes): 20 minutes Discharge Plan Discharge Items Patient Disposition: Home - Home Health Services Reason For Visit: Unspecified Thoracic, Thoracolumbar and Lumbosacra Discharge Diagnosis: Lumbar spinal stenosis with neurogenic claudication Activity: Resume your previous activity Non-emergency contact: Primary Care Provider Call non-emergency contact if: you have any medication questions Follow-up/Referrals: Neno Del Cid PA-C [Primary Care Provider] - Diet: Regular Addtl Attending Provider Instructions: ACTIVITY RECOMMENDATIONS: SELF CARE INSTRUCTIONS AFTER THORACIC/LUMBAR FUSIONS 1. You may walk to your tolerance. It is good exercise for your legs and back. Expect some back and intermittent leg aches and pains. 2. You may perform "counter-top" level activities (make a sandwich, reed with a project, etc.). 3. No bending or lifting of more than 10 pounds or back twisting of any nature (roll like a log when turning in bed). 4. You may ride in a car for 20-30 minutes at a time. No driving until after your first visit with your doctor. 5. Frequent changes of position and restricting sitting to 30 minutes at a time will help limit the amount of back spasms and stiffness you may experience. 6. You may discontinue the use of ambulatory aids (cane, crutches, etc.) once your strength and confidence allow. 7. You may veneer repairer machine the shower and let water strike your incision when you arrive home at least once daily. Do not take a tub bath, sit in a hot tub or go into a swimming pool until after your first recheck in the office. SPECIAL CARE INSTRUCTIONS: VERY IMPORTANT TO READ AND REVIEW A. Your surgical incision has been closed with a cosmetic suture under the skin that will dissolve in about 6 weeks. In 14 days, you can use a pair of clean scissors and cut the suture that is left outside of the skin at the ends of your incision. 1. The small skin tapes can be removed 7 days after surgery if they have not fallen off by that point. 2. You may keep the wound open to air as much as possible to promote healing after post-op day number 5 unless told otherwise by your doctor. 3. If you think the wound looks like it is becoming infected (redness or worsening drainage) and/or you are experiencing fever, chill or worsening back pain and muscle spasms, contact the office so that we may evaluate you as soon as possible. B. Complications are uncommon, but please contact us if you have any signs or symptoms of: 1. wound infection (fever higher than 102.5 degrees F, redness, separation of wound, drainage, or increasing pain from the incision) 2. blood clots in legs (pain, swelling, redness and warmth in legs) 3. urinary tract infection (fever higher than 102.5 degrees F, burning upon urination or increased frequency of urination) 4. nerve problems (inability to walk on your toes or heels, numbness, loss of bowel or bladder control) 5. any other symptoms that concern you C. Please call the office at if you have any concerns or questions about your operation or recovery. D. No smoking! Smoking drastically decreases the chance of a solid fusion. E. Do not take any anti-inflammatory medications (Indocin, Advil, Motrin, Aspirin, Naprosyn, etc.) as these may inhibit the chance of a solid fusion. Tylenol is okay to take for pain. MANAGING PAIN AFTER SPINAL SURGERY 1. Narcotic medication is intended for short-term use and will be provided for surgical pain. Surgical pain usually lasts for a period of 4-6 weeks. Narcotic medication includes Percocet, Vicodin, Darvocet, Tylenol #3 or Lortab. 2. Longer-term pain is more appropriately treated with non-narcotic medication such as Tylenol ES. 3. Muscle spasm is not appropriately treated with narcotics. Muscle relaxers such as Soma, Flexeril or Skelaxin can be used along with Tylenol ES. 4. Remember that we all live with some "aches and pains". This is not unusual or uncommon after an injury or as we get older. a. Back pain is expected and may include muscle spasms for 4 to 6 weeks after surgery. The pain should gradually improve. If the pain worsens for no apparent reason, please contact the office. b. Intermittent leg pain may also be experienced and should not be concerned about unless it worsens for no apparent reason. If so, please contact the office. 5. We will provide appropriate medication within the normal guidelines of their prescribed use. We will also be very cautious and aware of potential abuse and extended duration of patients' medication needs. a. Pain medications are for your comfort and to assist with sleep and rest so that the tissue can heal. They are not provided in order to return to normal activity and should not be used through the day. To do so or worsening pain at night can result from ongoing tissue damage and development of tolerance to the prescribed medicine. 6. Please allow 2-3 days to process refills. Prescriptions will not be mailed but must be picked up at the office. FOLLOW UP VISIT: Keep your scheduled follow-up appointment. Any questions, please call the office at . Pending Studies at Discharge: No Stand-Alone Forms: My [employer], Smoking Cessation Medications and DC Order Prescriptions: New tramadol 50 mg tablet 50 mg PO Q6H PRN (Reason: pain, moderate) Qty: 30 RF: 0 oxycodone 5 mg tablet 5 mg PO Q6H PRN (Reason: pain, severe) Qty: 30 RF: 0 Continued multivitamin Tablet 1 tab PO QAM RF: 0 pravastatin 40 mg Tablet 40 mg PO QAM RF: 0 paroxetine HCl 20 mg Tablet 20 mg PO QAM RF: 0 nicotine 21 mg/24 hr Patch 24 Hour 1 patch TRANSDERMAL DAILY PRN (Reason: IF UNABLE TO SMOKE) RF: 0 Discontinued ibuprofen 200 mg Tablet 400 mg PO Q6H PRN (Reason: Pain) RF: 0 Discharge Orders: Discharge Order (Routine); Ordered 02/04/21 Ordered By: Chato Sandoval Admission Data Admit Date/Time: 02/01/21 15:54 Attending Provider: Chato Sandoval Admit Provider: Chato Sandoval Primary Care Provider: Neno Del Cid Other Providers: [facility] ; Roque Kirkpatrick
--- NOTE | 2021-02-04 17:36 | Hospitalist Progress Note ---
Date of Service February 04, 2021 Assessment & Plan (1) Status post lumbar surgery: Post op day# 1 S/P L3-S1 decompression & fusion by Dr Sandoval - stable overall Hg 11, asymptomatic -DVT prophylaxis per ortho -incentive spirometry Elevated BP - likely secondary to pain, steroids, anxiety component advised patient to ff up with PCP in 1-2 weeks he verbalized understanding and agreement (2) Hyperlipidemia: -Continue pravastatin (3) Generalized anxiety disorder: (4) Depression: -Continue paroxetine (5) Tobacco use: -Nicotine patch -Smoking cessation encouraged DVT Prophylaxis -SCDs per ortho Thank you for this consultation. We will follow the patient with you during their hospital stay. You can reach a [facility] via tiger text or pager @ [phone]. Admission and Anticipated Discharge Date Admission Date: February 01, 2021 Subjective ff up for post op back surgery etc seen resting in bed, comfortable watching TV back pain well controlled no headache, dizziness, chest pain, dyspnea, palpitations no other symptoms states he is ready for discharge today Review of Systems Review of Systems: All systems reviewed & are unremarkable except as noted in Subjective Physical Exam Physical Exam: General- oriented x 3, not in distress, speaks in sentences with no effort or accessory muscle use Eyes- anicteric Neck- no JVD Lungs- clear breath sounds bilaterally Heart- normal rate, regular rhythm; no murmurs Abdomen- normal bowel sounds, nondistended, soft, nontender Extremities- no pretibial edema, no calf tenderness Neuro- alert, oriented x 3; no gross focal neurologic deficits Skin- warm & dry Results & Data Results & Data ([facility]) Vital Signs (Past 12 Hours) Vital Signs Temp Pulse Pulse Resp BP BP Pulse Ox 02/04/21 11:52 36.8 C 78 77 17 154/73 H 173/87 H 97 02/04/21 07:25 36.8 C 77 17 154/73 H 97 all noted and reviewed including below
== END 2021-02-04 12:37 | disposition home health service (06) | DRG 455 ==
LOC: ASU 10:28 → 3E 15:54